=== PATIENT | female | born 1960 | race Caucasian/White ===

== ENCOUNTER 2024-11-05 21:08 | Emergency (ER) | payer MEDICARE, OTHER, SELFPAY ==
--- NOTE | 2024-11-05 21:23 | XR_ITS ---
EXAMINATION: Ankle, right 3 views . Technique: Ankle AP, oblique, lateral 3 views Date and time of exam: November 05, [id number] hrs. Indications: Ankle injury today with pain and swelling Findings: No acute fracture No dislocation No foreign body Impression: No acute fracture
[2024-11-05 22:20] VITALS: BP 138/77; PULSE 86; RESP 18; TEMP 37; O2SAT 96; BMI 46.4
--- NOTE | 2024-11-05 22:25 | XR_ITS ---
Examination: Foot, right, 3 views Technique: AP, oblique, lateral views foot, 3 views Date and time of exam: November 05, 2024 10:30 PM Indications: Twisting injury to the foot today, foot pain Findings: No acute fracture No dislocation No opaque foreign body Impression: No acute fracture
--- NOTE | 2024-11-06 02:40 | PD.EDANKLE ---
Lower Extremity Injury RME/HPI General Chief Complaint: Extremity Injury, Lower Stated Complaint: RIGHT LEG PAIN Time Seen by Provider: 11/05/24 22:25 Arrival date/time: 11/05/24 21:08 64F with no significant PMH presents to ED with R ankle/foot pain after twisting it while walking. Patient denies falling. Limitations: no limitations Related Data Allergies Allergy/AdvReac Type Severity Reaction Status Date / Time iodine Allergy Verified 11/05/24 21:13 [place] Allergy Verified 11/05/24 21:13 GLUE Allergy Uncoded 11/05/24 21:13 Review of Systems Review of Systems Systems Reviewed: All systems reviewed, normal except as documented Constitutional Constitutional: Reports system reviewed and no additional complaints, except as documented, Denies fever(s) and Denies headache(s) ENT Ears, Nose, Mouth, and Throat: Denies disequilibrium and Denies headache(s) Cardiovascular Cardiovascular: Reports system reviewed and no additional complaints, except as documented, Denies chest pain and Denies dyspnea Respiratory Respiratory: Reports system reviewed and no additional complaints, except as documented, Denies cough and Denies dyspnea Gastrointestinal Gastrointestinal: Reports system reviewed and no additional complaints, except as documented, Denies abdominal pain, Denies nausea and Denies vomiting Musculoskeletal Musculoskeletal: Reports as per HPI and Reports arthralgias Neurologic Neurologic: Reports system reviewed and no additional complaints, except as documented, Denies confusion, Denies disequilibrium and Denies headache(s) Psychiatric Psychiatric: Denies confusion Past Medical History Social History SMOKING STATUS: Never smoker ED Exam General Limitations: Present no limitations General appearance: Present alert and in no apparent distress Head Head exam: Present atraumatic Eye Eye exam: Present normal appearance, PERRL and EOMI ENT ENT exam: Present normal exam, normal oropharynx and mucous membranes moist Neck Neck exam: Present normal inspection, full ROM and trachea midline Chest Chest inspection: Present normal inspection and symmetric chest wall rise Respiratory Respiratory exam: Present normal lung sounds bilaterally Cardiovascular Cardiovascular exam: Present regular rate, normal rhythm and normal heart sounds Abdominal Exam Abdominal exam: Present soft and normal bowel sounds Extremities Exam Extremities exam: Present full ROM Expanded Lower Extremity Exam Ankle exam: Present full ROM (R), tenderness and swelling Foot/toe exam: Present full ROM, tenderness and swelling Back Exam Back exam: Present normal inspection and full ROM Neurological Exam Neurological exam: Present alert, oriented X3 and CN II-XII intact Psychiatric Psychiatric exam: Present normal affect and normal mood Skin Skin exam: Present warm, dry, intact and normal color Course Quality Measures none Orders Category Date Time Status Crutches .NOW Care 11/05/24 22:25 Completed XR ankle comp RT min 3V Stat Exams 11/05/24 21:23 Completed XR foot comp RT min 3V Stat Exams 11/05/24 22:25 Completed Vital Signs Vital signs: Vital Signs Temperature 98.6 F 11/05/24 22:20 Pulse Rate 86 11/05/24 22:20 Respiratory Rate 18 11/05/24 22:20 Blood Pressure 138/77 H 11/05/24 22:20 Pulse Oximetry (%) 96 11/05/24 22:20 Oxygen Delivery Method Room Air 11/05/24 22:20 O2 at 96% on RA and WNLs Extremity Injury, Lower MDM Narrative MDM Narrative:: 64F with no significant PMH presents to ED with R ankle/foot pain after twisting it while walking. Patient denies falling. Physical exam reveals R ankle/foot tenderness. ROM intact. Patient is afebrile, calm, and alert. XR no fx. Crutches, ELAN, and certified substance abuse counselor given. Patient data External records reviewed:: None Clinical information provided by:: patient Social determinants that could affect healthcare access:: none Patient has the following chronic illnesses:: none How is presenting disease/condition affected by chronic disease/condition?: no chronic disease Evaluation data The following diagnostics were reviewed and interpreted by me:: radiology exam(s) Lab and/or radiology exams considered but not ordered:: ordered Interpretation Summary: above Medications / Prescriptions Medications or Prescriptions considered but not ordered:: not ordered Medication administrations:: n/a Consultations Consultation(s) initiated? (list below): No Diagnosis Extremity Injury, Lower Differential Diagnosis: ankle sprain and strain, acute internal derangement of knee, puncture wound of foot, fracture of toe and ankle fracture Most likely diagnosis given after review of the tests above:: ankle sprain and strain Admission Indicated Admission indicated?: not indicated Admission Request Was there a request for admission?: No Disposition Plan Disposition Plan: Discharge Discharge Attestation Discharge Attestation: The patient and all family members were given an opportunity to ask questions and understood the discharge instructions. Discharge instructions specifically effects, indications for sooner follow up or return to the emergency department, and the expected course of current diagnosis. Patient condition: Stable Discharge Plan Plan Patient Disposition: HOME (Self Care) Disposition Comment: STable Problem List Clinical Impression: Ankle sprain and strain Patient/Caregiver Discharge Instructions Education Materials: ED Ankle Sprain (Adult) Additional Instructions: Please follow-up with PCP within 24-48 hours and return immediately if symptoms worsen. If problem persists, recommend outpatient PT and/or MRI follow-up. In the meantime, rest, use ice/heat, and/or compression. Print Language: K[place] Stand Alone Forms: Work/School Release, Patient Portal Info Letter PA/DIP GUIDER [employer]OV[employer] Supervising Physician PA/DIP GUIDER [employer] Supervising Physician: Dr. Gustafson
== END 2024-11-06 00:09 | disposition home or self-care (01) ==
LOC: SERX 23:52
PROVIDERS: Emergency Provider Emergency Medicine; PCP Family Medicine
DX: S93.401A Sprain of unspecified ligament of right ankle, initial encounter (principal); X50.1XXA Overexertion from prolonged static or awkward postures, initial encounter; Y93.01 Activity, walking, marching and hiking
CPT/HCPCS: 73610; 73630; 99283